=== PATIENT | female | born 1990 | race Caucasian/White ===

== ENCOUNTER 2017-04-03 14:13 | Outpatient (CLI) | payer SELFPAY | END 2017-04-03 14:14 | disposition home or self-care (01) | LOC: LAB 14:13 | PROVIDERS: ATTEND Obstetrics & Gynecology | DX: Z11.3 Encounter for screening for infections with a predominantly sexual mode of transmission (principal) | CPT/HCPCS: 36415; 86803; 87340 ==

== ENCOUNTER 2017-05-25 11:47 | Emergency (ER) | payer SELFPAY ==
[2017-05-25 11:58] VITALS: BP 121/86
--- NOTE | 2017-05-25 14:14 | ED Physician Documentation ---
PD HPI HEAD INJURY - Stated complaint Stated Complaint: HEAD INJURY - Chief complaint Chief Complaint: Heent - History obtained from History obtained from: Patient - History of Present Illness Mechanism of head injury: Blow Where head injury occurred: Home Timing - onset: Last night (cleaning closet and a glass bowl with pointed design fell and struck her on top of head. Some bleeding at the time. Has had some local headache, and feeling slower with thought process. No visual changes , vomiting, diffuse headache.) Location of injury: Front, Top Quality of pain: Aching, Dull Associated symptoms: AMS (slightly slow thought process this morning.). No: LOC , Nausea / vomiting Symptoms worsen with: Palpation Contributing factors: No: Anticoagulated Similar symptoms before: Has not had sx before Recently seen: Not recently seen Review of Systems Eyes: denies: Loss of vision, Decreased vision Neurologic: denies: Focal weakness, Numbness, Confused, LOC PD PAST MEDICAL HISTORY - Past Medical History Past Medical History: No Neuro: None - Past Surgical History Past Surgical History: Yes HEENT: Tonsil/Adenoidectomy - Present Medications Home Medications: Ambulatory Orders Medication Instructions Recorded Confirmed Ondansetron Odt [Zofran] 4 mg TL Q6H PRN #15 tablet 05/25/17 - Allergies Allergies/Adverse Reactions: Allergies Allergy/AdvReac Type Severity Reaction Status Date / Time No Known Drug Allergies Allergy Verified 05/25/17 11:57 - Social History Does the pt smoke?: Yes Smoking Status: Current every day smoker PD ED PE NORMAL - Vitals Vital signs reviewed: Yes - General General: Alert and oriented X 3, No acute distress, Well developed/nourished - HEENT HEENT: Other (frontal scalp with small laceration/puncture just 2-3 mm size. No FB nor bleeding. Not depressed. 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 ), d/w patient Departure - Departure Disposition: 01 Home, Self Care Clinical Impression: Scalp laceration Qualifiers: Encounter type: initial encounter Qualified Code(s): S01.01XA - Laceration without foreign body of scalp, initial encounter Mild concussion Qualifiers: Encounter type: initial encounter Loss of consciousness presence/duration: without LOC Qualified Code(s): S06.0X0A - Concussion without loss of consciousness, initial encounter Condition: Stable Record reviewed to determine appropriate education?: Yes Instructions: ED Concussion Prescriptions: Ondansetron Odt [Zofran] 4 mg TL Q6H PRN #15 tablet PRN Reason: Nausea / Vomiting Comments: Rest today and possibly tomorrow. Allow the headache and cognitive symptoms to improve before increasing activity level. However do not be completely better rested as that slows improvement as well. Tylenol or ibuprofen if needed for pains. If you are still nauseous then I wrote a prescription for some ondansetron. Recheck if not better over the next few days. Return if worsening or not better for consideration of imaging at that time. At this point as we discussed we did not necessarily need to do any imaging such as CT scans. Forms: Activity restrictions Discharge Date/Time: 05/25/17 14:42
[2017-05-25] MEDS ORDERED: ONDANSETRON ODT 4 MG TABLET TL STA (14:35)
[2017-05-25] MEDS ORDERED: ONDANSETRON ODT 4 MG TABLET ONE (14:42)
== END 2017-05-25 14:42 | disposition home or self-care (01) ==
LOC: ED 11:47
DX: S06.0X0A Concussion without loss of consciousness, initial encounter (principal); S01.01XA Laceration without foreign body of scalp, initial encounter; W20.8XXA Other cause of strike by thrown, projected or falling object, initial encounter; Y93.E9 Activity, other interior property and clothing maintenance; Y92.009 Unspecified place in unspecified non-institutional (private) residence as the place of occurrence of the external cause; F17.200 Nicotine dependence, unspecified, uncomplicated
CPT/HCPCS: 99283; Q0162

== ENCOUNTER 2019-04-27 11:04 | Outpatient (CLI) | payer MEDICAID | END 2019-04-27 11:05 | disposition EMS.NT | LOC: EMS 11:04 | PROVIDERS: ATTEND Surgery | DX: Z04.1 Encounter for examination and observation following transport accident (principal); F41.9 Anxiety disorder, unspecified ==

== ENCOUNTER 2019-04-27 11:49 | Emergency (ER) | payer OTHER, MEDICAID ==
[2019-04-27 12:09] VITALS: BP 118/87
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
[2019-04-27] MEDS ORDERED: ACETAMINOPHEN 325 MG TABLET PO STA (14:02)
== END 2019-04-27 14:55 | disposition home or self-care (01) ==
LOC: ED 11:49
DX: O99.89 Other specified diseases and conditions complicating pregnancy, childbirth and the puerperium (principal); M54.2 Cervicalgia; M54.9 Dorsalgia, unspecified; V43.52XA Car driver injured in collision with other type car in traffic accident, initial encounter; W22.11XA Striking against or struck by driver side automobile airbag, initial encounter; Y92.410 Unspecified street and highway as the place of occurrence of the external cause; O99.332 Smoking (tobacco) complicating pregnancy, second trimester; F17.200 Nicotine dependence, unspecified, uncomplicated; Z3A.16 16 weeks gestation of pregnancy
CPT/HCPCS: 99282; A9270

== ENCOUNTER 2019-10-20 17:15 | Outpatient (CLI) | payer MEDICAID ==
--- NOTE | 2019-10-22 13:33 | Ultrasound Report ---
Reason: POSTDATES Procedure Date: 10/20/2019 Accession Number: [id number] / [id number] Procedure: US - OB Limited CPT Code: Final Report FULL RESULT: EXAM: LIMITED OBSTETRICAL ULTRASOUND EXAM DATE: 10/20/2019 05:48 PM. CLINICAL HISTORY: POSTDATES. Amniotic fluid evaluation. COMPARISON: None. TECHNIQUE: Real-time sonographic evaluation of the fetus performed by the lead inspector. Multiple public relations representative static images were saved for review. DATING: Established EGA 41 weeks 3 days with CARLYN 10/10/2019. GENERAL EVALUATION Rose . Cardiac activity: 123 bpm. movement: Visualized. Presentation: Cephalic. Placenta: Posterior fundal position. Amniotic fluid: Normal. MEGHAN 13.1 cm. MVP 3.7 cm. IMPRESSION: 1. MEGHAN equals 13.1 cm. Maximum Vertical pocket 3.7 cm. RADIA
== END 2019-10-20 17:16 | disposition home or self-care (01) ==
LOC: DI 17:15
PROVIDERS: ATTEND Midwife
DX: O48.0 Post-term pregnancy (principal); Z3A.41 41 weeks gestation of pregnancy
CPT/HCPCS: 76815

== ENCOUNTER 2020-01-03 16:00 | Outpatient (CLI) | payer MEDICAID ==
[2020-01-03 22:27] LABS: CANDIDA GROUP DNA NEGATIVE (NEGATIVE); CANDIDA KRUSEI DNA NEGATIVE (NEGATIVE); TRICHOMONAS VAGINALIS DNA NEGATIVE (NEGATIVE)
== END 2020-01-03 23:59 | disposition home or self-care (01) ==
LOC: LAB.R 16:00
PROVIDERS: ATTEND Obstetrics & Gynecology
DX: N89.8 Other specified noninflammatory disorders of vagina (principal)
CPT/HCPCS: 87661; 87801

== ENCOUNTER 2023-12-05 09:04 | Emergency (ER) | payer MEDICAID, OTHER ==
[2023-12-05 09:13] VITALS: BP 111/72; O2SAT 100
--- NOTE | 2023-12-05 10:32 | ED Physician Documentation ---
PD HPI SKIN - Stated complaint Stated Complaint: RT POINTER FINGER SWELLING - Chief complaint Chief Complaint: Wound - History obtained from History obtained from: Patient - History of Present Illness Timing - onset: Yesterday Timing - duration: Days (1) Timing - details: Gradual onset (puncture with blackberry thorn yesterday through glove, and has increased redness and pain and swelling at that area today.) Location: RUE (index finger dsorsal PIP joint area.) Review of Systems Constitutional: denies: Fever, Chills Neurologic: denies: Focal weakness, Numbness PD PAST MEDICAL HISTORY - Past Medical History Endocrine/Autoimmune: None - Past Surgical History Past Surgical History: Yes HEENT: Tonsil/Adenoidectomy - Present Medications Home Medications: Ambulatory Orders Medication Instructions Recorded Confirmed Betamethasone Valerate 1 applic TP QID 5 Days #15 gm 12/05/23 Cetirizine [ZyrTEC] 10 mg PO BID #15 tablet 12/05/23 Doxycycline Hyclate 100 mg PO BID 5 Days #10 cap 12/05/23 - Allergies Allergies/Adverse Reactions: Allergies Allergy/AdvReac Type Severity Reaction Status Date / Time No Known Drug Allergies Allergy Verified 12/05/23 09:09 - Social History Does the pt smoke?: Yes Smoking Status: Current every day smoker Does the pt drink ETOH?: Yes Does the pt have substance abuse?: No - Immunizations Immunizations are current?: No Immunizations: TDAP >10years/unknown - POLST Patient has POLST: No PD ED PE NORMAL - Vitals Vital signs reviewed: Yes - General General: Alert and oriented X 3, Well developed/nourished - Derm Derm: Normal color, Warm and dry - Extremities Extremities: Other - Neuro Neuro: Alert and oriented X 3, No motor deficit, No sensory deficit Results - Vitals Vitals: Oxygen O2 Source Room air PD Medical Decision Making - ED course Complexity details: considered differential (redness and swelling dorsal knuckle with pain on ROM but no pain extending to hand/forearm. Good color and cap refill. normal sensation at tip. No obvious residual FB.), d/w patient Reviewed Lab Results: used close up glasses to enlarge view and scalpel tip to look at puncture site. No FB noted. Can treat for sensitivity reaction versus infection (is a little early for infection but no timpossible). no tenderness proximal to the knuckle. Pain at the joint with ROM of the finger though. Departure - Departure Disposition: 01 Home, Self Care Clinical Impression: Synovitis due to plant thorn Condition: Stable Record reviewed to determine appropriate education?: Yes Prescriptions: Betamethasone Valerate 1 applic TP QID 5 Days #15 gm Doxycycline Hyclate 100 mg PO BID 5 Days #10 cap Cetirizine [ZyrTEC] 10 mg PO BID #15 tablet Comments: The promptness of the swelling and redness is more likely a chemical raised spots/irritation but the location around the joint and tendons is concerning for early infection if it were to be developing that. As such we commonly will treat for both a local chemical response and swelling as well as a possible infection with a combination of antihistamines and antibiotics as well as a topical steroid type medicine. We can use a finger splint to help protect it as well. I sent your prescriptions to preferred pharmacy. Recheck if not improving well over the next 2 to 3 days and resolved in that timeframe. Return if worsening. Forms: PCP List Discharge Date/Time: 12/05/23 11:31
[2023-12-05] MEDS: MUPIROCIN 2% OINT 1 GM TOP STA (11:13)
[2023-12-05] MEDS: CETIRIZINE 10 MG TABLET PO STA (11:13)
[2023-12-05] MEDS: DOXYCYCLINE 100 MG TABLET PO STA (11:13)
== END 2023-12-05 11:31 | disposition home or self-care (01) ==
LOC: ED 09:04
DX: S63.611A Unspecified sprain of left index finger, initial encounter (principal); X58.XXXA Exposure to other specified factors, initial encounter; F17.200 Nicotine dependence, unspecified, uncomplicated
CPT/HCPCS: 99283; A9270

== ENCOUNTER 2023-12-18 12:43 | Emergency (ER) | payer OTHER ==
[2023-12-18 12:56] VITALS: BP 116/70; O2SAT 98
--- NOTE | 2023-12-18 13:17 | XRAY Report ---
PROCEDURE: Chest 1V INDICATIONS: cough TECHNIQUE: One view of the chest was acquired. COMPARISON: None. FINDINGS: Surgical changes and devices: None. Lungs and pleura: No pleural effusions or pneumothorax. Lungs are clear. Mediastinum: Mediastinal contours appear normal. Heart size is normal. Bones and chest wall: No suspicious bony lesions. Overlying soft tissues appear unremarkable. IMPRESSION: No acute cardiopulmonary process. Reviewed by: Jayy Elder MD on 12/18/2023 1:16 PM PDT Approved by: Jayy Elder MD on 12/18/2023 1:16 PM PDT Station ID: [id number]
--- NOTE | 2023-12-18 14:37 | ED Physician Documentation ---
History of Present Illness - Stated complaint Stated Complaint: WHEEZING,COUGHING - Chief complaint Chief Complaint: Resp - History obtained from History obtained from: Patient - Additonal information Additional information: The pt comes to the ED for CC of cough and chest heaviness for the past week. She has had mild mucus production. No fevers or shortness of breath. She quit smoking about 2 months ago, but has not had any issues with cough or excess mucus production. No sore throat or nasal congestion. No known allergies. No heart issues. Pt is otherwise fairly healthy. PD PAST MEDICAL HISTORY - Past Medical History Past Medical History: No Endocrine/Autoimmune: None - Past Surgical History Past Surgical History: Yes HEENT: Tonsil/Adenoidectomy - Present Medications Home Medications: Ambulatory Orders Medication Instructions Recorded Confirmed Albuterol Sulf [Ventolin Hfa 1 - 2 puffs INH Q4HR PRN #1 each 12/18/23 Inhaler] - Allergies Allergies/Adverse Reactions: Allergies Allergy/AdvReac Type Severity Reaction Status Date / Time No Known Drug Allergies Allergy Verified 12/18/23 13:03 - Social History Does the pt smoke?: Yes Smoking Status: Former smoker Does the pt drink ETOH?: Yes Does the pt have substance abuse?: No - Immunizations Immunizations are current?: No Immunizations: TDAP >10years/unknown - POLST Patient has POLST: No PD ED PE NORMAL - Vitals Vital signs reviewed: Yes - General General: Alert and oriented X 3, No acute distress, Well developed/nourished - HEENT HEENT: Atraumatic, EOMI, Moist mucous membranes - Neck Neck: Supple, no meningeal sign - Cardiac Cardiac: RRR, No murmur - Respiratory Respiratory: No respiratory distress, Clear bilaterally - Abdomen Abdomen: Soft, Non tender, Non distended - Derm Derm: Normal color, Warm and dry, No rash - Extremities Extremities: No deformity, No edema, No calf tenderness / cord - Neuro Neuro: Other (grossly intact) - Psych Psych: Normal mood, Normal affect Results - Vitals Vitals: Vital Signs - 24 hr 12/18/23 12:47 Temperature 36.8 C Heart Rate 71 Respiratory 16 Rate Blood Pressure 116/70 O2 Saturation 98 Oxygen O2 Source Room air - Rads (name of study) chest XR Relevant Findings:: Final report received, See rad report (neg) PD Medical Decision Making - ED course Complexity details: reviewed results, re-evaluated patient, considered differential, d/w patient ED course: Pt declined pcr panel. CXR was negative. I d/w pt that her sx could be due to allergies, viral illness, or the after-effects of quitting smoking. Whatever the case, the sx are expected to pass on their own, given time. The pt would like an albuterol inhaler, and I have prescribed this for her. We have discussed the need for follow-up and the usual indications for return. Departure - Departure Disposition: 01 Home, Self Care Clinical Impression: Cough Qualifiers: Cough type: acute Qualified Code(s): R05.1 - Acute cough Condition: Stable Instructions: ED Cough Chronic Cause Unkn, ED Allergy Seasonal, ED Viral Syndrome Prescriptions: Albuterol Sulf [Ventolin Hfa Inhaler] 1 - 2 puffs INH Q4HR PRN #1 each PRN Reason: Shortness Of Air/Wheezing Comments: Your x-ray looks good. It is not clear what is causing your cough though it could be allergies, a virus, or a delayed rebound from quitting smoking. In any case, there is no evidence of a serious condition at this point, we will expect the symptoms to resolve on their own. A prescription for an albuterol inhaler has been electronically transmitted to the [facility] pharmacy in [place]. You may use this as needed. Please follow-up with your primary care physician as needed. Forms: PCP List Discharge Date/Time: 12/18/23 14:44
== END 2023-12-18 14:44 | disposition home or self-care (01) ==
LOC: ED 12:43
DX: R05.1 Acute cough (principal); Z87.891 Personal history of nicotine dependence
CPT/HCPCS: 99283; 99284

== ENCOUNTER 2024-01-19 12:34 | Emergency (ER) | payer OTHER ==
[2024-01-19 12:48] VITALS: O2SAT 99
[2024-01-19 13:30] LABS: RAPID STREP SCREEN Negative (Negative)
--- NOTE | 2024-01-19 13:54 | XRAY Report ---
PROCEDURE: Chest 2V INDICATIONS: cough TECHNIQUE: 2 views of the chest were acquired. COMPARISON: 12/18/2023 FINDINGS: Surgical changes and devices: None. Lungs and pleura: No pleural effusions or pneumothorax. Lungs are clear. Mediastinum: Mediastinal contours appear normal. Heart size is normal. Bones and chest wall: No suspicious bony lesions. Overlying soft tissues appear unremarkable. IMPRESSION: No acute cardiopulmonary process. No focal consolidation. Reviewed by: Malik Kunz MD on 01/19/2024 1:52 PM PDT Approved by: Malik Kunz MD on 01/19/2024 1:52 PM PDT Station ID: [id number]
--- NOTE | 2024-01-19 14:01 | ED Physician Documentation ---
PD HPI URI - Stated complaint Stated Complaint: SOA,COUGH - Chief complaint Chief Complaint: General - History obtained from History obtained from: Patient - Additional information Additional information: Patient is a 33-year-old female without any significant past medical history presenting for evaluation of a productive cough for the past 1 week. Patient states initial symptoms started with sore throat, ear pain, sinus congestion which lasted for several days and then she developed the cough. The cough is productive of green mucus. At times she reports the coughing gets a bed that she will throw up. She is otherwise tolerating p.o. intake with no abdominal symptoms. No fevers. Has not tried any qeat-ctz-wchiifq medications for her symptoms. She did use to smoke cigarettes and quit in October. 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 : None HEENT: None Psych: None Musculoskeletal: None - Past Surgical History Past Surgical History: Yes HEENT: Tonsil/Adenoidectomy - Present Medications Home Medications: Ambulatory Orders Medication Instructions Recorded Confirmed Albuterol Sulf [Ventolin Hfa 1 - 2 puffs INH Q4HR PRN #1 each 12/18/23 01/19/24 Inhaler] Albuterol Sulf [Ventolin Hfa 1 - 2 puffs INH Q4HR PRN #1 each 01/19/24 Inhaler] Benzonatate [Tessalon] 100 mg PO TID PRN #20 cap 01/19/24 - Allergies Allergies/Adverse Reactions: Allergies Allergy/AdvReac Type Severity Reaction Status Date / Time No Known Drug Allergies Allergy Verified 01/19/24 12:48 - Social History Does the pt smoke?: Yes Smoking Status: Current every day smoker Does the pt drink ETOH?: Yes Does the pt have substance abuse?: No - Immunizations Immunizations are current?: No Immunizations: TDAP >10years/unknown - POLST Patient has POLST: No PD ED PE NORMAL - General General: Alert and oriented X 3, No acute distress, Well developed/nourished - HEENT HEENT: Atraumatic, Moist mucous membranes, Pharynx benign (No oral swelling, erythema or exudate) - Neck Neck: Supple, no meningeal sign - Cardiac Cardiac: RRR, Strong equal pulses - Respiratory Respiratory: No respiratory distress, Clear bilaterally - Derm Derm: Warm and dry - Neuro Neuro: Normal speech Results - Vitals Vitals: Vital Signs - 24 hr 01/19/24 01/19/24 12:37 14:09 Temperature 36.8 C 36.6 C Heart Rate 87 88 Respiratory 16 16 Rate Blood Pressure 107/74 116/70 O2 Saturation 99 99 Oxygen O2 Source Room air - Labs Labs: Laboratory Tests 01/19/24 13:20 Group A Strep Rapid Negative PD Medical Decision Making - ED course ED course: Patient with URI symptoms for the past 1 week. Lung sounds are clear. Vital signs are stable. Chest x-ray which I reviewed is negative for consolidation or signs of pneumonia. Rapid strep is negative. At this time I do not see indication for antibiotic treatment and recommend continued supportive care. PERC negative. No chest pain. Will give trial of albuterol for coughing spells as well as Tessalon. Patient counseled on need for close follow-up as well as advised on concerning symptoms to return for. Departure - Departure Disposition: Home, Self Care Clinical Impression: Cough, URI (upper respiratory infection) Condition: Stable Instructions: ED Upper Resp Infec No Abx Tx Prescriptions: Albuterol Sulf [Ventolin Hfa Inhaler] 1 - 2 puffs INH Q4HR PRN #1 each PRN Reason: Shortness Of Air/Wheezing Benzonatate [Tessalon] 100 mg PO TID PRN #20 cap PRN Reason: Cough Comments: Your strep test is negative and your chest x-ray does not show signs of pneumonia. Therefore at this time antibiotics would not be indicated. I have sent prescriptions for medication to help with the cough including an albuterol inhaler as well as a cough medication. Continue with fluids and staying hydrated. Return to the ER if you develop any worsening symptoms. Forms: PCP List Discharge Date/Time: 01/19/24 14:10
[2024-01-19 14:16] VITALS: BP 116/70
== END 2024-01-19 14:10 | disposition home or self-care (01) ==
LOC: ED 12:34
DX: J06.9 Acute upper respiratory infection, unspecified (principal); F17.210 Nicotine dependence, cigarettes, uncomplicated
CPT/HCPCS: 87070; 87430; 99283; 99284